=== PATIENT | female | born 2000 | race Caucasian/White ===

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

== ENCOUNTER → 2019-03-21 | Outpatient (CLI) | payer OTHER ==
--- NOTE | 2019-03-21 11:51 | US ---
EXAMINATION TYPE: Transabdominal DATE OF EXAM: 03/21/2019 11:24 AM COMPARISON: NONE CLINICAL HISTORY: Z36 CONFIRM [id number]. EXAM PERFORMED: Transvaginal (TV)as bladder not full EXAM MEASUREMENTS: GESTATIONAL AGE / DATING Physician Established: Not yet established Dates by LMP: (9 weeks/5 days) EDC: 10/19/2019 Dates by First Scan: No previous. Dates by Current Scan for: (9 weeks/2 days) EDC: 10/22/2019 MATERNAL ANATOMY Uterus: 8.1 x 7.9 x 6.1cm Right Ovary: 2.5 x 2.0 x 1.2cm Left Ovary: 2.9 x 1.7 x 1.5cm Post CDS / Adnexa: wnl Presence of free fluid: no Presence of corpus luteal cyst: in right ovary = 1.4 x 1.5 x 1.4cm Presence of subchorionic bleed: complex, hypoechoic area seen superior and lateral to subchorion = 3. 6 x 1.5 x 2.0cm GESTATION / SURVEY CRL: 2.6cm (9 weeks/2 days) Yolk Sac (normal less than 6mm): 3.8mm Heart Rate: 169 bpm Rhythm: Normal IUP: single IUP Date of LMP: 01/12/2019 Beta HcG (if available): NA Single, live IUP, 9 weeks/2 days, EDC: 10/22/2019,HR 169bpm, presence of subchorionic bleed noted as complex, hypoechoic area seen superior and lateral to subchorion = 3.6 x 1.5 x 2.0cm. IMPRESSION: 1. Findings are suggestive of a subchorionic hemorrhage measuring 3.6 cm. Single viable IUP of 9 week s 2 days and a heart rate of 169 bpm.
== END | disposition home or self-care (01) ==
LOC: RADUSWWP 10:51
PROVIDERS: ATTEND Obstetrics & Gynecology
DX: Z36.87 Encounter for antenatal screening for uncertain dates (principal); Z3A.09 9 weeks gestation of pregnancy
CPT/HCPCS: 76817

== ENCOUNTER 2019-10-16 23:45 | Inpatient (IN) | payer OTHER ==
[2019-10-17] MEDS ORDERED: METHYLERGONOVINE 0.2 MG/ML 1 ML AMP IM PRN (00:03)
[2019-10-17] MEDS ORDERED: CARBOPROST TROMETHAMINE 250 MCG/ML 1 ML AMP IM PRN (00:03)
[2019-10-17] MEDS ORDERED: OXYTOCIN 10 UNIT/ML 1 ML VIAL IM PRN (00:03)
[2019-10-17] MEDS ORDERED: TERBUTALINE 1 MG/ML VIAL SQ PRN (00:03)
[2019-10-17] MEDS ORDERED: LIDOCAINE 0.5% (PF) 5 MG/ML (50 ML SDV) SQ PRN (00:03)
[2019-10-17] MEDS ORDERED: OXYTOCIN 30 UNITS/500 ML NS 30 UNIT in SALINE 1 500ML.BAG IV SCH (00:15)
[2019-10-17] MEDS ORDERED: LACTATED RINGERS 1,000 ML IV SCH ×2 (00:15)
[2019-10-17 00:30] LABS: Basophils % (A) 0 %; Eosinophils # (A) 0.2 k/uL (0-0.7); Eosinophils % (A) 1 %; HCT 41.9 % (34.0-46.0); HGB 14.2 gm/dL (11.4-16.0); Lymphocytes # (A) 2.2 k/uL (1.0-4.8); Lymphocytes % (A) 15 %; MCH 31.9 pg (25.0-35.0); MCHC 33.9 g/dL (31.0-37.0); Mean Platelet Volume 7.4; Monocytes % (A) 7 %; Neutrophils # (A) 11.1 k/uL (1.3-7.7); Neutrophils % (A) 75 %; Platelet Count 265 k/uL (150-450); RBC 4.46 m/uL (3.80-5.40); RDW 12.4 % (11.5-15.5); WBC 14.8 k/uL (4.0-11.0)
[2019-10-17] MEDS ORDERED: fentaNYL (PF) 50 MCG/ML 5 ML AMP ONE (00:35)
[2019-10-17] MEDS ORDERED: SODIUM CHLORIDE 0.9% 100 ML BAG ONE (00:35)
[2019-10-17] MEDS ORDERED: ROPIVACAINE 5MG/ML 20ML VIAL ONE (00:35)
[2019-10-17 01:41] LABS: INR 0.9 (<1.2); Partial Thromboplastin Time 24.6 sec (22.0-30.0); Prothrombin Time 9.4 sec (9.0-12.0)
[2019-10-17 01:42] LABS: Uric Acid 4.3 mg/dL (3.7-7.4)
[2019-10-17] MEDS ORDERED: diphenhydrAMINE 50 MG CAP PO PRN (02:15)
[2019-10-17] MEDS ORDERED: BENZOCAINE/MENTHOL SPRAY 1 GM/SPRAY AEROSOL TOPICAL PRN (02:15)
[2019-10-17] MEDS ORDERED: LANOLIN CREAM 5 GM TUBE TOPICAL PRN (02:15)
[2019-10-17] MEDS ORDERED: ACETAMINOPHEN TAB 325 MG TAB PO PRN (02:15)
[2019-10-17] MEDS ORDERED: SIMETHICONE 80 MG CHEWABLE PO PRN (02:15)
[2019-10-17] MEDS ORDERED: diphenhydrAMINE 25 MG CAP PO PRN (02:15)
[2019-10-17] MEDS ORDERED: HYDROCORTISONE 2.5% RECTAL CREAM 30 GM TUBE RECTAL PRN (02:15)
[2019-10-17] MEDS ORDERED: OXYTOCIN 20 UNITS/1000 ML NS 1,000 ML IV SCH (02:15)
[2019-10-17] MEDS ORDERED: ZOLPIDEM 5 MG TAB PO PRN (02:15)
[2019-10-17] MEDS ORDERED: diphenhydrAMINE 50 MG/ML 1 ML VIAL IVP PRN ×2 (02:15)
[2019-10-17] MEDS ORDERED: IBUPROFEN 600 MG TAB PO PRN (02:15)
--- NOTE | 2019-10-17 02:18 | P.HPOB ---
History of Present Illness H&P Date: 10/17/19 Chief Complaint: Intrauterine at term: Active labor Betty is a 18-year-old at 39 weeks 5 days gestation who ryes in active labor angela every 2 minutes dilated to 5-6 cm. She was dilated to 4 cm proxy 2 weeks ago in the office and is getting very uncomfortable. Her course has been unremarkable she relates that she has had no concerns or issues throughout the entire . Past medical history is otherwise unremarkable as well. Pertinent labs include O+ blood type, Rh and it was negative, rubella is immune, hepatitis B surface antigen RPR and GBS are all also negative. We are expecting spontaneous vaginal delivery and she plans to use an epidural for analgesia. Category 1 tracing is noted. Past Medical History Past Medical History: No Reported History Additional Past Medical History / Comment(s): Obstetric history: This is her first was had care with me since 17 weeks. Her EDC did change with her anatomy ultrasound. Blood type was O+, antibodies negative, rubella nonimmune, treponema antibody negative, hepatitis B negative, HIV nonre active, hepatitis B negative. She failed 1 hour glucose tolerance test but had a normal three-hour. GBS negative. History of Any Multi-Drug Resistant Organisms: MRSA Date of last positivie culture/infection: 2013 MDRO Source:: stomach Past Surgical History: No Surgical Hx Reported Past Anesthesia/Blood Transfusion Reactions: No Reported Reaction Past Psychological History: No Psychological Hx Reported Smoking Status: Never smoker Past Alcohol Use History: None Reported Past Drug Use History: Unable to Obtain - Past Family History Mother Family Medical History: No Reported History Medications and Allergies Home Medications Medication Instructions Recorded Confirmed Type Pnv No.95/Ferrous Fum/Folic AC 1 each PO DAILY 12/06/16 10/16/19 History [ Multivitamin Tablet] Allergies Allergy/AdvReac Type Severity Reaction Status Date / Time No Known Allergies Allergy Verified 10/16/19 23:50 Exam Osteopathic Statement: *. No significant issues noted on an osteopathic stru ctural exam other than those noted in the History and Physical/Consult. Vital Signs Temp Pulse Resp BP Pulse Ox 10/17/19 00:00 97.7 F 76 18 142/96 97 Intake and Output 10/16/19 10/16/19 10/17/19 14:59 22:59 06:59 Intake Total 1000 Balance 1000 Intake: IV 1000 Other: Weight 67.132 kg - OBG Physical Exam Breast: both: normal (no masses) Abdomen: bowel sounds normal, no diffuse tenderness, no bruit present, no guarding noted, no hepatomegaly, no splenomegaly, no mass Vulva: both: normal Vagina: normal moisture, no discharge Cervix: no lesion, no discharge Uterus: normal size, normal contour Adnexa: both: normal Anus/Rectum: normal perianal skin, no rectal mass, no hemorrhoids, heme negative Results Result Diagrams: 10/17/19 00:15 10/17/19 00:15 Abnormal Lab Results - Last 24 Hours (Table) 10/17/19 Range/Units 00:15 WBC 14.8 H (4.0-11.0) k/uL Neutrophils # 11.1 H (1.3-7.7) k/uL
--- NOTE | 2019-10-17 02:19 | P.PROBDLV ---
Vaginal Delivery Note - . Vaginal Delivery Note: Betty progressed complete and pushed with spontaneous vaginal delivery of a viable female over an intact perineum. Baby was delivered from right occiput anterior position. Falling deliver the head slight rotation of the body was done to allow for easy delivery both anterior posterior shoulders. Once they were delivered mouth nares were bulb suctioned and baby was placed on mother's abdomen where the umbilical cord was clamped and cut in usual fashion following 40 seconds of pulsation. Nursery personnel was present and assumed care. Placenta was then delivered intact and Pitocin was added to the IV. scores were 8 and 9 at one and 5 minutes respectively and the weight was 7 lbs. 9 oz. Both mother and baby are stable following delivery.
[2019-10-17] MEDS: SENNOSIDES-DOCUSATE SODIUM 1 EACH TAB PO SCH ×2 (09:32→20:04)
--- NOTE | 2019-10-18 07:05 | P.DS ---
Providers Date of admission: 10/17/19 00:00 Expected date of discharge: 10/18/19 Attending physician: Lisbeth Vargas Primary care physician: Stated None - Discharge Diagnosis(es) (1) Normal vaginal delivery Current Visit: No Status: Acute Hospital Course: Patient presented in active labor. She underwent a normal vaginal delivery. Her course was uncomplicated. She denies nausea, vomiting, chest pain, shortness of breath or calf pain. She'll be discharged home day #1 in stable condition to follow-up with me in 6 weeks Plan - Discharge Summary New Discharge Prescriptions: New Ibuprofen [Motrin] 600 mg PO Q6HR PRN #30 tab PRN Reason: Mild Pain Or Fever >= 100.5 No Action Pnv No.95/Ferrous Fum/Folic AC [ Multivitamin Tablet] 1 each PO DAILY Discharge Medication List Pnv No.95/Ferrous Fum/Folic AC [ Multivitamin Tablet] 1 each PO DAILY 12/06/16 [History] Ibuprofen [Motrin] 600 mg PO Q6HR PRN #30 tab 10/18/19 [Rx] Follow up Appointment(s)/Referral(s): Lisbeth Vargas DO [Doctor of Osteopathic Medicine] - 1 Week Discharge Disposition: HOME SELF-CARE
[2019-10-18 07:45] VITALS: BP 117/80; PULSE 79; RESP 16; TEMP 98.6
== END 2019-10-18 10:00 | disposition home or self-care (01) | DRG 807 ==
LOC: FBPOP 23:45 → 4FBP 10-17
PROVIDERS: ADMIT Obstetrics & Gynecology; ATTEND Obstetrics & Gynecology
PROC: 10E0XZZ Delivery of Products of Conception, External Approach (ICD-10-PCS; principal; 2019-10-17)
PROC: 3E0R3BZ Introduction of Anesthetic Agent into Spinal Canal, Percutaneous Approach (ICD-10-PCS; principal; 2019-10-17)
PROC: 00HU33Z Insertion of Infusion Device into Spinal Canal, Percutaneous Approach (ICD-10-PCS; principal; 2019-10-17)
DX: O80 Encounter for full-term uncomplicated delivery (principal); Z37.0 Single live birth; Z3A.39 39 weeks gestation of pregnancy; Z79.899 Other long term (current) drug therapy; Z86.14 Personal history of Methicillin resistant Staphylococcus aureus infection
CPT/HCPCS: 59025; 83615; 84450; 84460; 84520; 84550; 85025; 85610; 85730; 86850; 86900; 86901; 99213

== ENCOUNTER → 2021-06-12 | Outpatient (CLI) | payer OTHER ==
--- NOTE | 2021-06-12 10:06 | US ---
EXAMINATION TYPE: Transabdominal DATE OF EXAM: 06/12/2021 9:52 AM COMPARISON: NONE CLINICAL HISTORY: Z36.89 ENCOUNTER FOR OTHER SPECIFIED SCREENING. confirm dates. Positive b eta hCG test. EXAM PERFORMED: Transabdominal (TA) EXAM MEASUREMENTS: GESTATIONAL AGE / DATING Physician Established: Not yet established Dates by LMP: LMP unknown Dates by First Scan: No previous this is first scan Dates by Current Scan for: (10 weeks/4 days) EDC: 01/04/22 MATERNAL ANATOMY Uterus: 8.9 x 7.0 x 8.1cm Right Ovary: 3.6 x 1.5 x 1.6cm Left Ovary: 2.7 x 1.6 x 1.5cm Post CDS / Adnexa: appears wnl Presence of free fluid: no Presence of corpus luteal cyst: yes, hypoechoic area right ovary = 2.0 x 1.6 x 1.8cm GESTATION / SURVEY CRL: 3.7cm (10 weeks/4 days) Yolk Sac (normal less than 6mm): 0.4cm Heart Rate: 158 bpm Rhythm: Normal IUP: Viable IUP Date of LMP: unknown Beta HcG (if available): Not available at this time Single live intrauterine gestation as gestational sac, yolk sac, and pole are seen. No free flu id in pelvic cul-de-sac. Both ovaries identified. There is 2.0 cm peripheral lesion right ovary suspicious for corpus luteal c yst. No suspicious extra ovarian adnexal lesion seen. IMPRESSION: Single live intrauterine gestation is confirmed, mean crown-rump length 3.7 cm correspond ing to a 10 week 4 day old fetus.
== END | disposition home or self-care (01) ==
LOC: RADUSWWP 09:33
PROVIDERS: ATTEND Obstetrics & Gynecology
DX: Z36.89 Encounter for other specified antenatal screening (principal); Z3A.10 10 weeks gestation of pregnancy
CPT/HCPCS: 76801

== ENCOUNTER 2021-12-19 15:50 | Inpatient (IN) | payer OTHER ==
[2021-12-19] MEDS ORDERED: METHYLERGONOVINE 0.2 MG/ML 1 ML AMP IM PRN (16:06)
[2021-12-19] MEDS ORDERED: LIDOCAINE 0.5% (PF) 5 MG/ML (50 ML SDV) SQ PRN (16:06)
[2021-12-19] MEDS ORDERED: OXYTOCIN 10 UNIT/ML 1 ML VIAL IM PRN (16:06)
[2021-12-19] MEDS ORDERED: TERBUTALINE 1 MG/ML VIAL SQ PRN (16:06)
[2021-12-19] MEDS ORDERED: CARBOPROST TROMETHAMINE 250 MCG/ML 1 ML AMP IM PRN (16:06)
[2021-12-19] MEDS ORDERED: LACTATED RINGERS 1,000 ML IV SCH (16:15)
--- NOTE | 2021-12-19 17:00 | P.HPOB ---
History of Present Illness H&P Date: 12/19/21 Chief Complaint: Contractions This is a 21-year-old female 3 para 2 with an estimated date of confinement of 01/04/2022, estimated gestational age of 37-5/7 weeks, who presented to labor and delivery with complaints of contractions that began approximately 2 PM today. She denied any rupture of membranes. care has been with Dr. Vargas and has been uncomplicated. labs: Group B streptococcus-negative One hour Glucola-143, three-hour Glucola-within normal limits Hemoglobin-12.2 Hepatitis B surface antigen-negative RPR-nonreactive Rubella-immune Blood type-O+ Antibody screen-negative HIV-nonreactive Random glucose-60 Pap smear-within normal limits GC/cavity is/Trichomonas-negative Obstetrical history: . History of 2 vaginal deliveries at term. Social history: She is single. She works at [employer]. Review of Systems Constitutional: Denies chills, Denies fever Eyes: denies blurred vision, denies pain Ears, nose, mouth and throat: Denies headache, Denies sore throat Cardiovascular: Denies chest pain, Denies shortness of breath Respiratory: Denies cough Gastrointestinal: Reports abdominal pain (Contractions) Genitourinary: Reports pelvic pain, Reports Musculoskeletal: Reports low back pain Integumentary: Denies pruritus, Denies rash Neurological: Denies numbness, Denies weakness Psychiatric: Denies anxiety, Denies depression Past Medical History Past Medical History: No Reported History History of Any Multi-Drug Resistant Organisms: MRSA Date of last positivie culture/infection: 2013 MDRO Source:: stomach Past Surgical History: No Surgical Hx Reported Past Anesthesia/Blood Transfusion Reactions: No Reported Reaction Past Psychological History: No Psychological Hx Reported Smoking Status: Never smoker Past Alcohol Use History: None Reported Past Drug Use History: Unable to Obtain - Past Family History Mother Family Medical History: No Reported History Medications and Allergies Home Medications Medication Instructions Recorded Confirmed Type No Known Home Medications 12/19/21 12/19/21 History Allergies Allergy/AdvReac Type Severity Reaction Status Date / Time No Known Allergies Allergy Verified 12/19/21 16:05 Exam Osteopathic Statement: *. No significant issues noted on an osteopathic structural exam other than those noted in the History and Physical/Consult. Intake and Output 12/19/21 12/19/21 12/19/21 06:59 14:59 22:59 Other: Weight 63.049 kg HEENT: Within normal limits Heart: Regular rate and rhythm Lungs: Clear to auscultation bilaterally Abdomen: Cervix: 6 and meters/90%/-1 station heart tones: Category 1 Contractions: Every couple minutes Extremities: Negative Homans Assessment and Plan (1) 37 weeks gestation of Current Visit: Yes Status: Acute Code(s): Z3A.37 - 37 WEEKS GESTATION OF SNOMED Code(s): 78614063 Plan: Admission for active labor. Expectant management. Epidural anesthesia if desired.
--- NOTE | 2021-12-19 17:02 | P.PROBDLV ---
Vaginal Delivery Note - . Vaginal Delivery Note: The patient upon transfer to her room from triage, began feeling very uncomfortable and had spontaneous rupture membranes. Clear fluid was noted. Shortly thereafter she began feeling the urge to push and was found to be completely dilated. She precipitously delivered vaginally a viable male infant across an intact perineum in the bed with nursing staff present. Nose and mouth were bulb suctioned. Cord was clamped and cut. Infant was taken to warmer for evaluation. A viable male is noted with scores of 9 at 1 minute and 10 at 5 minutes and infant weight of 7 lbs. 3 oz. Placenta delivered shortly thereafter, intact, with a three-vessel cord. Uterus contracted fairly well after oxytocin was given and uterine massage was carried out. Fashion of the perineum revealed no perineal lacerations. She did have a mild abrasion that was noted to be hemostatic on the right periurethral area. Estimated blood loss is approximately 100 mL's. Both mother and are in stable condition.
[2021-12-19 17:03] LABS: Basophils % (A) 0 %; Eosinophils # (A) 0.1 k/uL (0-0.7); Eosinophils % (A) 1 %; HCT 36.7 % (34.0-46.0); HGB 13.5 gm/dL (11.4-16.0); Lymphocytes # (A) 1.8 k/uL (1.0-4.8); Lymphocytes % (A) 12 %; MCHC 36.8 g/dL (31.0-37.0); MCV 89.6 fL (80.0-100.0); Mean Platelet Volume 7.8; Monocytes # (A) 0.9 k/uL (0-1.0); Monocytes % (A) 6 %; Neutrophils % (A) 80 %; Platelet Count 460 k/uL (150-450); Poikilocytosis Slight; RDW 12.3 % (11.5-15.5); WBC 15.1 k/uL (3.8-10.6)
[2021-12-19] MEDS ORDERED: IBUPROFEN 600 MG TAB PO PRN (17:37)
[2021-12-19] MEDS ORDERED: BENZOCAINE/MENTHOL SPRAY 1 GM/SPRAY AEROSOL TOPICAL PRN (17:37)
[2021-12-19] MEDS ORDERED: LANOLIN CREAM 5 GM TUBE TOPICAL PRN (17:37)
[2021-12-19] MEDS ORDERED: HYDROCORTISONE 2.5% RECTAL CREAM 30 GM TUBE RECTAL PRN (17:37)
[2021-12-19] MEDS ORDERED: ACETAMINOPHEN TAB 325 MG TAB PO PRN (17:37)
[2021-12-19] MEDS ORDERED: OXYTOCIN 30 UNITS/500 ML NS 30 UNIT in SALINE 1 500ML.BAG IV SCH (18:00)
[2021-12-19] MEDS: SENNOSIDES-DOCUSATE SODIUM 1 EACH TAB PO SCH (19:39)
[2021-12-20 05:11] LABS: Basophils # (A) 0.1 k/uL (0-0.2); Basophils % (A) 0 %; Eosinophils # (A) 0.1 k/uL (0-0.7); Eosinophils % (A) 1 %; HCT 33.9 % (34.0-46.0); HGB 12.2 gm/dL (11.4-16.0); Lymphocytes # (A) 2.4 k/uL (1.0-4.8); Lymphocytes % (A) 14 %; MCHC 35.9 g/dL (31.0-37.0); Mean Platelet Volume 7.7; Monocytes % (A) 6 %; Neutrophils # (A) 12.7 k/uL (1.3-7.7); Neutrophils % (A) 77 %; Platelet Count 348 k/uL (150-450); RBC 3.69 m/uL (3.80-5.40); RDW 12.5 % (11.5-15.5); WBC 16.5 k/uL (3.8-10.6)
[2021-12-20] MEDS: SENNOSIDES-DOCUSATE SODIUM 1 EACH TAB PO SCH (09:21)
--- NOTE | 2021-12-20 12:50 | P.DS ---
Providers Date of admission: 12/19/21 16:05 Expected date of discharge: 12/20/21 Attending physician: Lisbeth Vargas Primary care physician: Stated None - Discharge Diagnosis(es) (1) 37 weeks gestation of Current Visit: Yes Status: Acute Hospital Course: This is a 21-year-old female 3 para 2 at 37-5/7 weeks who presented in active labor. She delivered rather precipitously a viable male infant on 12/19/2021 with scores of 9 at 1 minute and 10 at 5 minutes and weight is 7 lbs. 3 oz. Her course was uncomplicated. Lochia has been minimal. She is bottle feeding. Vital signs are stable. Abdomen is soft with fundus firm and nontender. Extremities show negative Homans. Impression is status post vaginal delivery day #1. Plan is to discharge home today. Routine instructions are given. She is advised follow-up in the office in 6 weeks for check. She is advised to call the office if she has any further questions or concerns prior to her appointment time. She is advised to follow up with Dr. Vargas. Procedures: Spontaneous vaginal delivery of a viable male infant on 12/19/2021 Patient Condition at Discharge: Stable Plan - Discharge Summary New Discharge Prescriptions: No Action No Known Home Medications Discharge Medication List No Known Home Medications 12/19/21 [History] Follow up Appointment(s)/Referral(s): Lisbeth Vargas DO [Doctor of Osteopathic Medicine] - 6 Weeks Activity/Diet/Wound Care/Special Instructions: Instructions 1. Do not begin any exercise program for 3 weeks. 2. Do not resume sexual relations for 3 weeks or longer if uncomfortable. 3. You may take tub baths or showers at any time. 4. You may use tampons if desired after 3 weeks. 5. Keep the area of episiotomy (stitches) clean and dry. 6. If you are not nursing, wear a good fitting, supportive bra during the day and limit fluid intake for at least 1 week to prevent breast engorgement. 7. Call the office, [phone], within the next week to make appointment for your 6 week checkup if it has not already been made. 8. Report any of the following occurrences to the doctor promptly: a. Heavy, excessive bleeding b. Chills, fever c. Burning or frequency of urination d. Pain or redness and breasts if nursing e. Increasing pain or swelling in episiotomy (stitches). In addition to the above instructions, the following additional should be followed: 1. No heavy lifting or straining (exercising) until after 6 week checkup. 2. Keep abdominal incision clean and dry: You may wear a dressing if more comfortable. 3. Make office appointment for 10 days after going home or as instructed by her doctor. Discharge Disposition: HOME SELF-CARE
[2021-12-20 16:39] VITALS: BP 114/68; PULSE 72; RESP 18; TEMP 97.6
== END 2021-12-20 17:24 | disposition home or self-care (01) | DRG 807 ==
LOC: FBPOP 15:50 → 4FBP 16:05
PROVIDERS: ADMIT Obstetrics & Gynecology; ATTEND Obstetrics & Gynecology
PROC: 10E0XZZ Delivery of Products of Conception, External Approach (ICD-10-PCS; principal; 2021-12-19)
DX: O62.3 Precipitate labor (principal); Z37.0 Single live birth; Z3A.37 37 weeks gestation of pregnancy; Z28.310 Unvaccinated for COVID-19; Z28.21 Immunization not carried out because of patient refusal; Z86.14 Personal history of Methicillin resistant Staphylococcus aureus infection
CPT/HCPCS: 85025; 86850; 86900; 86901; 99213